=== PATIENT | female | born 1995 | race Caucasian/White ===

== ENCOUNTER 2023-03-06 05:30 | Inpatient (IN) | payer OTHER ==
[2023-03-06 06:12] VITALS: BMI 30.9
[2023-03-06] MEDS ORDERED: NS w/ Oxytocin 30 units 500 ML ONE (06:52)
[2023-03-06] MEDS ORDERED: Carboprost 250 MCG/ML AMP IM PRN (06:53)
[2023-03-06] MEDS ORDERED: Misoprostol 200 MCG TAB PR PRN (06:53)
[2023-03-06] MEDS ORDERED: Lidocaine 1% (PF) 30 ML VIAL SC PRN (06:53)
[2023-03-06] MEDS ORDERED: Promethazine HCl 25 MG/ML VIAL IM PRN ×2 (06:53→21:31)
[2023-03-06] MEDS ORDERED: Ondansetron PF 4 MG/2 ML Vial IVP PRN ×2 (06:53→21:31)
[2023-03-06] MEDS ORDERED: fentaNYL 50 mcg/mL 1 mL Vial SLOW IVP PRN (06:53)
[2023-03-06] MEDS ORDERED: Docusate 100 MG CAP PO PRN (06:53)
[2023-03-06] MEDS ORDERED: Ibuprofen 800 MG TAB PO PRN (06:53)
[2023-03-06] MEDS ORDERED: Methylergonovine 0.2 MG/ML VIAL IM PRN (06:53)
[2023-03-06] MEDS ORDERED: Diphenoxylate HCl/Atropine Tablet PO PRN ×2 (06:53)
[2023-03-06] MEDS ORDERED: Acetaminophen 500 MG TAB PO PRN (06:53)
[2023-03-06] MEDS ORDERED: hydrALAZINE 20 MG/ML VIAL SLOW IVP PRN (06:53)
[2023-03-06] MEDS ORDERED: Tranexamic Acid 1,000 MG/10 ML VIAL IVP PRN (06:53)
[2023-03-06] MEDS ORDERED: Lactated Ringer's 1,000 ML IV SCH (07:00)
[2023-03-06] MEDS ORDERED: NS w/ Oxytocin 30 units 500 ML IV SCH ×3 (07:00)
[2023-03-06] MEDS ORDERED: Misoprostol 100 MCG TAB ONE (07:02)
[2023-03-06] MEDS: Misoprostol 100 MCG TAB VAG SCH (07:09)
[2023-03-06 07:17] LABS: Hemoglobin 10.7 g/dL (12.0-15.5); Mean Corpuscular HGB CONC 32.4 g/dL (32.0-36.0); Mean Corpuscular Volume 80.3 fl (81.6-98.3); Mean Platelet Volume 11.7 fl (7.4-10.4); Platelet Count 144 10x3/uL (150-450); Red Blood Cell (RBC) Count 4.11 10x6/uL (3.90-5.03); White Blood Cell (WBC) Count 7.2 10x3/uL (3.5-10.5)
[2023-03-06 07:35] LABS: HBSAg Index 0.17 S/CO (0-0.99); Hep B Surf Ag - L&D Non-Reactive S/CO (NonReactive)
[2023-03-06 14:01] LABS: Syphilis Antibody Nonreactive (Nonreactive); Syphilis Antibody Index 0.04 S/CO (<1.00 Non-Reactive)
[2023-03-06] MEDS ORDERED: Bupivacaine HCl 0.5%/Epinephrine 1:200,000/PF 30 ml Vial ONE (17:00)
[2023-03-06] MEDS ORDERED: Bupivacaine 0.25% HCL 30 ML VIAL ONE (17:00)
[2023-03-06] MEDS ORDERED: Lactated Ringer's 500 ML IV PRN (21:31)
[2023-03-06] MEDS ORDERED: ePHEDrine Sulfate 50 MG/10 ML VIAL SLOW IVP PRN (21:31)
[2023-03-06] MEDS ORDERED: Naloxone HCl 0.4 mg/ml Vial IVP PRN ×2 (21:31)
[2023-03-06] MEDS ORDERED: Acetaminophen 325 MG TAB PO PRN (21:31)
[2023-03-06] MEDS ORDERED: Moisturizing Cream (Eucerin) 113 GM JAR TOP PRN (21:31)
[2023-03-06] MEDS ORDERED: diphenhydrAMINE 50 MG/ML VIAL IVP PRN (21:31)
[2023-03-06] MEDS ORDERED: Communication Order-Pharmacy FS SCH (21:45)
[2023-03-06] MEDS ORDERED: fentaNYL 2 mcg/Ropivacaine 0.2% Epidural 100 ML CADD EPIDURAL SCH (21:45)
[2023-03-07] MEDS ORDERED: CEFAZOLIN 2 GM in Sodium Chloride 0.9% 100 ML IVPB SCH (02:30)
[2023-03-07] MEDS ORDERED: Misoprostol 200 MCG TAB VAG PRN (05:06)
[2023-03-07] MEDS ORDERED: Promethazine HCl 25 MG/ML VIAL IM PRN (05:06)
[2023-03-07] MEDS ORDERED: traMADol HCl 50 MG TAB PO PRN ×2 (05:06)
[2023-03-07] MEDS ORDERED: Varicella virus, LIVE 0.5 ML VIAL SC ONE (05:06)
[2023-03-07] MEDS ORDERED: Measles/Mumps/Rubella 10 MCG/0.5 ML VIAL SC ONE (05:06)
[2023-03-07] MEDS ORDERED: Ondansetron PF 4 MG/2 ML Vial IVP PRN (05:06)
[2023-03-07] MEDS ORDERED: diphenhydrAMINE 25 MG CAP PO PRN (05:06)
[2023-03-07] MEDS ORDERED: Bisacodyl 10 MG SUPP PR PRN (05:06)
[2023-03-07] MEDS ORDERED: Benzocaine-Menthol 82.5 ML CAN TOP PRN (05:06)
[2023-03-07] MEDS ORDERED: hydrALAZINE 20 MG/ML VIAL SLOW IVP PRN (05:06)
[2023-03-07] MEDS ORDERED: NS w/ Oxytocin 30 units 500 ML IV SCH (05:06)
[2023-03-07] MEDS ORDERED: Zolpidem Tartrate 5 MG TAB PO PRN (05:06)
[2023-03-07] MEDS ORDERED: Methylergonovine 0.2 MG/ML VIAL IM PRN (05:06)
[2023-03-07] MEDS ORDERED: Boostrix 0.5 ML (Tdap) VIAL (>/=7 yrs of age) IM ONE (05:06)
[2023-03-07] MEDS ORDERED: Preparation H Ointment 28 GM TUBE PR PRN (05:06)
[2023-03-07] MEDS ORDERED: Milk Of Magnesia 30 ML UDCUP PO PRN (05:06)
[2023-03-07] MEDS ORDERED: Lanolin Ointment 7 GM TUBE TOP PRN (05:06)
[2023-03-07] MEDS: Ibuprofen 800 MG TAB PO SCH ×3 (05:18→17:49)
[2023-03-07] MEDS: Docusate 100 MG CAP PO SCH ×2 (08:49→20:09)
[2023-03-07] MEDS: Prenatal Vitamin 1 TAB PO SCH (08:49)
[2023-03-07] MEDS: Ferrous Sulfate 325 MG TAB PO SCH ×2 (08:50→14:41)
[2023-03-07] MEDS: Misoprostol 100 MCG TAB VAG SCH ×2 (21:51→21:52)
[2023-03-08 04:28] LABS: Hemoglobin 10.9 g/dL (12.0-15.5); Mean Corpuscular HGB CONC 32.6 g/dL (32.0-36.0); Mean Corpuscular Hemoglobin 26.7 pg (27.0-33.0); Mean Corpuscular Volume 81.9 fl (81.6-98.3); Mean Platelet Volume 11.6 fl (7.4-10.4); Platelet Count 164 10x3/uL (150-450); RBC Distribution Width 15.2 % (11.5-14.5); Red Blood Cell (RBC) Count 4.08 10x6/uL (3.90-5.03); White Blood Cell (WBC) Count 9.5 10x3/uL (3.5-10.5)
[2023-03-08] MEDS: Ibuprofen 800 MG TAB PO SCH ×2 (06:01→14:50)
[2023-03-08] MEDS: Ferrous Sulfate 325 MG TAB PO SCH (07:29)
[2023-03-08 08:05] VITALS: BP 119/76; TEMP 98.3
[2023-03-08] MEDS: Docusate 100 MG CAP PO SCH (09:55)
[2023-03-08] MEDS: Prenatal Vitamin 1 TAB PO SCH (09:55)
== END 2023-03-08 16:30 | disposition home or self-care (01) | DRG 807 ==
LOC: CSHLD 05:38 → CSHPP 03-07 06:40
PROVIDERS: ADMIT Obstetrics & Gynecology; ATTEND Obstetrics & Gynecology
PROC: 10E0XZZ Delivery of Products of Conception, External Approach (ICD-10-PCS; principal; 2023-03-07)
DX: O80 Encounter for full-term uncomplicated delivery (principal); Z37.0 Single live birth; Z3A.39 39 weeks gestation of pregnancy; Z88.6 Allergy status to analgesic agent
CPT/HCPCS: 36415; 51702; 85027; 86780; 86850; 86900; 86901; 87340; J2405; J2590; J3490; S0020